=== PATIENT | female | born 1995 | race Caucasian/White ===

== ENCOUNTER 2023-10-22 09:40 | Emergency (ER) | payer OTHER ==
[~2023-10-22] VITALS: Ht 170.2 cm; Wt 81.6 kg
[2023-10-22] MEDS ORDERED: NORFLEX100MG PO (10:29)
[2023-10-22] MEDS ORDERED: DICLOFENAC SODI75 MG PO (10:29)
== END 2023-10-22 10:51 | disposition home or self-care (01) ==
LOC: ER 09:41
DX: M54.2 Cervicalgia (principal)
CPT/HCPCS: 96372; 99284; J1885; J3301